=== PATIENT | male | born 1965 | race Caucasian/White ===

== ENCOUNTER 2023-06-02 17:20 | Emergency (ER) | payer OTHER ==
[~2023-06-02] VITALS: Ht 172.7 cm; Wt 136.0 kg
[2023-06-02 17:24] VITALS: O2SAT 95
[2023-06-02] MEDS: ACETAMINOPHEN 325MG TABLET PO ONE (18:16)
[2023-06-02] MEDS: KETOROLAC 15MG/ML VIAL IV ONE (19:05)
[2023-06-02 19:23] LABS: BASOPHILS % 0.2 % (0.0-2.0); EOSINOPHILS % 0.7 % (0.0-5.0); HEMATOCRIT. 42.7 % (42.0-52.0); HEMOGLOBIN. 14.1 g/dL (14.0-18.0); LYMPHOCYTES % 19.9 % (20.0-50.0); MEAN CORPUSCULAR HEMOGLOBIN 27.9 pg (28.0-32.0); MEAN CORPUSCULAR HGB CONC 33.1 g/dL (31.0-37.0); MEAN CORPUSCULAR VOLUME 84.2 fL (80.0-94.0); MEAN PLATELET VOLUME 8.3 fl (7.4-10.4); MONOCYTES % 7.1 % (2.0-8.0); NEUTROPHILS % 72.1 % (40.0-76.0); PLATELET 173 x1000/uL (130-400); RED BLOOD CELL COUNT 5.07 mill/uL (4.7-6.1); RED CELL DISTRIBUTION WIDTH 14.1 % (11.6-14.6); WHITE BLOOD COUNT 13.1 x1000/uL (4.5-11.0)
[2023-06-02 19:59] LABS: ALANINE AMINOTRANSFERASE 35 IU/L (10-49); ALBUMIN 4.6 g/dL (3.2-4.8); ASPARTATE AMINOTRANSFERASE 23 IU/L (<34); BILIRUBIN TOTAL 0.7 mg/dL (0.1-1.0); CALCIUM 9.2 mg/dL (8.7-10.4); CARBON DIOXIDE 25 mEq/L (21-32); CHLORIDE 103 mEq/L (98-107); ETHANOL BLOOD < 10 mg/dL (<10); GLUCOSE 127 mg/dL (70-105); SODIUM 138 mEq/L (136-145); TROPONIN I HIGH SENSITIVITY 4 ng/L (3.0-53); UREA NITROGEN BLOOD 12 mg/dL (9-23)
[2023-06-02] MEDS: DIPHENHYDRAMINE 50MG/ML VIAL IV ONE (20:55)
[2023-06-02] MEDS: METOCLOPRAMIDE HCL 10MG/2ML VIAL IV ONE (20:55)
[2023-06-02] MEDS: SODIUM CHLORIDE 0.9% 1,000 ML IV ONE (20:55)
[2023-06-02 22:09] VITALS: BP 130/87; PULSE 75; RESP 20; TEMP 97.7
== END 2023-06-02 22:02 | disposition home or self-care (01) ==
LOC: ER 17:20
DX: R41.82 Altered mental status, unspecified (principal); E78.00 Pure hypercholesterolemia, unspecified; I10 Essential (primary) hypertension
CPT/HCPCS: 80053; 80320; 83880; 85025; 84484; 36415; 71045; 70450; 93005; 96361; 96374; 96375; 99285; J1200; J1885; J2765; J7030; Z7610; G0480